=== PATIENT | female | born 1995 ===

== ENCOUNTER 2017-02-14 13:10 | Emergency (ER) | payer MEDICAID, OTHER ==
[2017-02-14 13:24] VITALS: BP 107/62; PULSE 82; TEMP 98.1; O2SAT 100
--- NOTE | 2017-02-14 13:51 | C.PDOC ---
History Of Present Illness 21 year old female presents to the ED for evaluation of cough associated with chest pain which began around 4 days ago. Patient notes her symptoms worsen at night. Last night, patient had a few episodes of post-tussive vomiting. Patient also notes occasional dizziness and headache associated with the cough. She reports chills at night, but denies fever, shortness of breath, abdominal pain. Time Seen by Provider: 02/14/17 13:25 Chief Complaint (Nursing): Cough, Cold, Congestion History Per: Patient History/Exam Limitations: no limitations Onset/Duration Of Symptoms: Days (4) Current Symptoms Are (Timing): Still Present Additional History Per: Patient Past Medical History Reviewed: Historical Data, Nursing Documentation, Vital Signs Vital Signs: Last Vital Signs Temp 98.1 F 02/14/17 13:23 Pulse 82 02/14/17 13:23 Resp 20 02/14/17 15:10 BP 107/62 02/14/17 13:23 Pulse Ox 100 02/14/17 15:52 - Medical History PMH: No Chronic Diseases Surgical History: No Surg Hx Family History: States: Unknown Family Hx - Social History Hx Alcohol Use: No Hx Substance Use: No - Immunization History Hx Tetanus Toxoid Vaccination: No Hx Influenza Vaccination: No Hx Pneumococcal Vaccination: No Review Of Systems Constitutional: Positive for: Chills. Negative for: Fever Cardiovascular: Positive for: Chest Pain Respiratory: Positive for: Cough. Negative for: Shortness of Breath Gastrointestinal: Positive for: Vomiting. Negative for: Nausea, Abdominal Pain Neurological: Positive for: Headache, Dizziness Physical Exam - Physical Exam Appears: Non-toxic, No Acute Distress Skin: Normal Color, Warm, Dry Head: Atraumatic, Normacephalic Eye(s): bilateral: Normal Inspection Ear(s): Bilateral: Normal Nose: Normal, No Discharge Oral Mucosa: Moist Throat: Normal, No Erythema, No Exudate Neck: Supple Chest: Symmetrical, No Deformity, No Tenderness Cardiovascular: Rhythm Regular, No Murmur Respiratory: Normal Breath Sounds, No Rales, No Rhonchi, No Wheezing Extremity: Normal ROM Neurological/Psych: Oriented x3, Normal Speech, Normal Cognition ED Course And Treatment ECG: Interpreted By Me ECG Rhythm: Sinus Rhythm Interpretation Of ECG: normal axis, normal ST-T wave, Rate From EC O2 Sat by Pulse Oximetry: 100 (on RA) Pulse Ox Interpretation: Normal - Radiology CXR: Interpreted by Me CXR Interpretation: Yes: No Acute Disease. No: Infiltrates Medical Decision Making Medical Decision Making: Progress: CXR ordered, results are unremarkable. On reassessment, patient is resting comfortably, showing no signs of distress and is stable for discharge. Patient is advised to follow up with her PMD within 1-2 days for further evaluation. Disposition - Disposition Referrals: [facility] [Outside] Disposition: HOME/ ROUTINE Disposition Time: 15:00 Condition: FAIR Additional Instructions: Follow up with the medical doctor within 1-2 days. Return if worsened. Prescriptions: Benzonatate [Tessalon Perles] 200 mg PO TID PRN #21 sgl PRN Reason: Cough Loratadine [Claritin] 10 mg PO DAILY #10 tab predniSONE [Prednisone] 20 mg PO BID #10 tab Instructions: Upper Respiratory Infection (ED) Forms: [employer] (Slovak), Work Excuse - Clinical Impression Clinical Impression: Upper respiratory infection - PA / CENTER MGR / Resident Statement MD/DO has reviewed & agrees with the documentation as recorded. - Scribe Statement The provider has reviewed the documentation as recorded by the Scribe (Mariza Patel) All medical record entries made by the Scribe were at my direction and personally dictated by me. I have reviewed the chart and agree that the record accurately reflects my personal performance of the history, physical exam, medical decision making, and the department course for this patient. I have also personally directed, reviewed, and agree with the discharge instructions and disposition.
--- NOTE | 2017-02-14 14:22 | RAD ---
HISTORY: cough, post-tussive emesis COMPARISON: No prior. TECHNIQUE: Chest PA and lateral FINDINGS: LUNGS: No focal infiltrate or effusion. PLEURA: No significant pleural effusion identified. No pneumothorax apparent. CARDIOVASCULAR: Normal. OSSEOUS STRUCTURES: No significant abnormalities. VISUALIZED UPPER ABDOMEN: Normal. OTHER FINDINGS: None. IMPRESSION: No active disease.
[2017-02-14 15:11] VITALS: RESP 20
--- NOTE | 2017-02-15 13:10 | CARD ---
APPROVED REPORT EKG Measurement Heart [id number] NM 110P-9 [id number] <Conclusion> Sinus rhythm with short NM Incomplete right bundle branch block Borderline ECG
== END 2017-02-14 15:10 | disposition home or self-care (01) ==
LOC: C.ER 13:10 → SUPCPDRO 13:10 → C.ER 15:10
DX: J06.9 Acute upper respiratory infection, unspecified (principal)